=== PATIENT | male | born 1950 | race Caucasian/White ===

== ENCOUNTER → 2019-10-22 | Outpatient (CLI) | payer MEDICARE ==
[~2019-10-22] MED LIST: REGADENOSON 0.4 MG/5 ML SYRINGE ONE
== END | disposition home or self-care (01) ==
LOC: CFH 07:05
PROVIDERS: ATTEND Internal Medicine Cardiovascular Disease
DX: I65.23 Occlusion and stenosis of bilateral carotid arteries (principal); I25.10 Atherosclerotic heart disease of native coronary artery without angina pectoris; R29.898 Other symptoms and signs involving the musculoskeletal system
CPT/HCPCS: 78452; 93017; 93306; 93880; A9502; J2785